=== PATIENT | female | born 1945 | race Caucasian/White ===

== ENCOUNTER 2016-04-16 15:26 | Inpatient (IN) | payer OTHER ==
--- NOTE | ~2016-04-16 | OR ---
Unit #: [id number] #: [id number] Patient: FLOR JOHANSEN [id number] [address] [place], [place] [address] [id number] I MR#: [id number] NAME: FLOR JOHANSEN. ROOM: [facility] Date of Procedure: 04/17/2016 Admission Date: 04/16/2016 Surgeon: Wallace Kendall M.D. : 1945 Attending Physician: Sugey Ragland M.D. Primary Care Physician: Tricia Spicer A.P.R.N. OPERATIVE REPORT PRIMARY CARE PHYSICIAN Tricia Spicer A.P.R.N. PREOPERATIVE DIAGNOSES The patient presents with a history of hematemesis and upper gastrointestinal bleed. PROCEDURE PERFORMED Upper gastrointestinal endoscopy and biopsy. POSTOPERATIVE DIAGNOSES 1. The patient had a large 4 cm submucosal mass in the mid body of the stomach with ulcerated surface. This is most likely the reason for her upper gastrointestinal bleed. 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 Biopsies obtained from the mass, which are likely to be normal because of the submucosal location. In addition, biopsies were also obtained from the antrum for CLOtest. 2. The patient also had grade 1 to 2 distal erosive esophagitis. 3. Rest of the examination up to third part of the duodenum was normal. RECOMMENDATIONS 1. Continue Protonix infusion for another 24 hours. 2. Clear liquid diet and advance as tolerated. 3. Transfuse 1 unit of packed cells today. 4. CBC and CMP in the morning. 5. The patient will need an outpatient endoscopic ultrasound followed by resection. It is preferable that she has a colonoscopy at the same time in the near future. SEDATION USED MAC. DESCRIPTION OF PROCEDURE Following detailed explanation of the potential risks and complications of an upper endoscopy, namely perforation, bleeding, complication related to sedation, the patient was brought to GI lab and laid in the left lateral decubitus position. Lubricated tip of the Olympus video upper endoscope was passed through the bite block into the proximal esophagus under direct vision. Entire esophageal mucosa was examined. The patient was noted to have grade 1 to 2 distal erosive esophagitis. The scope was then advanced into the gastric cavity and the latter was insufflated. Mucosa of the fundus, body, and antrum was examined. A large submucosal mass was seen Unit #: [id number] #: [id number] Patient: FLOR JOHANSEN in the mid body of the stomach with multiple ulcers on the surface. There were at least 3 sizable ulcers with craters in the surface of the mass. No active bleeding was noted. The prepyloric antral area appeared normal. Pylorus was intubated with visualization of the normal duodenal bulb and second and third part of the duodenum. Upon withdrawal and retroflexion, incisura, cardia, and greater curve were examined and biopsy was obtained from the antrum for CLOtest. In addition, biopsy was also obtained of the submucosal mass and sent for histology. The scope was then withdrawn into the distal esophagus. Entire esophageal mucosa was examined all the way up to pharynx. No additional findings noted. The patient tolerated the procedure without any postprocedure complications. Dictated by... Sonia Flores TD: 04/20/2016 05:21 JOB #: [id number] OPERATIVE REPORT X Wallace Kendall MD X PROCEDURE OPERATIVE NOTE
--- NOTE | ~2016-04-16 | OR ---
Unit #: [id number] #: [id number] Patient: FLOR JOHANSEN [id number] [address] [place], [place] [address] [id number] I MR#: [id number] NAME: FLOR JOHANSEN. ROOM: [facility] Date of Procedure: 04/19/2016 Admission Date: 04/16/2016 Surgeon: Wallace Kendall M.D. : 1945 Attending Physician: Sugey Ragland M.D. Primary Care Physician: Tricia Spicer A.P.R.N. OPERATIVE REPORT PRIMARY CARE PHYSICIAN Tricia Spicer A.P.R.N. PREOPERATIVE DIAGNOSES The patient has presented with upper gastrointestinal bleed and a recurrent bleed with drop in hemoglobin and anemia of acute gastrointestinal blood loss. She was found to have a medium-sized mass in the stomach in the area at the junction of the fundus and body with ulceration. The purpose of the examination is to consider endotherapy. PROCEDURES PERFORMED Upper gastrointestinal endoscopy and hemorrhage control. POSTOPERATIVE DIAGNOSES 1. An endoloop was applied at the base of the GIST tumor in the stomach. The purpose is to stop any bleeding from the ulcerated head of the mass. 2. Rest of the examination up to third part of duodenum was normal. RECOMMENDATIONS We will monitor the patient's hemoglobin and hematocrit over the next 24 to 48 hours. She will also require a colonoscopy either as an outpatient later on or as an inpatient in the next couple of days. SEDATION USED MAC. DESCRIPTION OF PROCEDURE The procedure was done in intensive care unit at the patient bedside. Lubricated tip of the Olympus video upper endoscope was passed through the bite block into the proximal esophagus under direct vision. The entire esophageal mucosa was examined and appeared normal. Z-line was nicely demarcated, there being no esophagitis or hiatus hernia. The scope was then advanced into the gastric cavity and latter was insufflated. Mucosa of the fundus, body, and antrum was examined and a GIST large submucosal mass was again seen. A medium-sized mucosa mass was again seen at the junction of body and fundus of stomach. Pylorus was intubated with visualization of the normal duodenal bulb and second and third part of the duodenum. The scope was then withdrawn in the gastric cavity, and attention was focused on the gastric mass. After careful evaluation, it was decided to place an endoloop around the base the mass and not resected because of severe bleeding. The endoloop was then placed at the base of the mass of the tumor and it was applied tightly. One could see a change Unit #: [id number] #: [id number] Patient: FLOR JOHANSEN in the color of the mass to purplish hue, because of strangulation blood supply. The area was washed for about 2 to 3 minutes. The scope was then withdrawn in the distal esophagus. The entire esophageal mucosa was examined all the way up to pharynx. No additional findings were noted. The patient tolerated the procedure without any postprocedure complications. Dictated by... Sonia Flores/nay TD: 04/21/2016 10:55 JOB #: [id number] OPERATIVE REPORT X Wallace Kendall MD X PROCEDURE OPERATIVE NOTE
--- NOTE | ~2016-04-16 | OR ---
Unit #: [id number] #: [id number] Patient: FLOR JOHANSEN [id number] [address] [place], [place] [address] [id number] I MR#: [id number] NAME: FLOR JOHANSEN. ROOM: [facility] Date of Procedure: 04/20/2016 Admission Date: 04/16/2016 Surgeon: Wallace Kendall M.D. : 1945 Attending Physician: Sugey Ragland M.D. Primary Care Physician: Tricia Spicer A.P.R.N. OPERATIVE REPORT ADDITIONAL ATTENDING PHYSICIAN Jessie Stephen M.D. PRIMARY CARE PHYSICIAN Tricia Spicer A.P.R.N. PREOPERATIVE DIAGNOSES Gastrointestinal bleed. The purpose of colonoscopy to look for any potential source of blood loss in the GI tract. It is noteworthy that the patient had an ulcerated gastrointestinal stromal tumor in the stomach, which most likely may be the reason for her upper gastrointestinal bleed. She has also been having some hematochezia. It is also noteworthy that the patient had a colonic perforation 10 years ago at [facility] and at that time had exploratory laparotomy. She also tells me that she had a tumor that was in the colon that was not removed. PROCEDURE PERFORMED Colonoscopy up to cecum with excellent preparation and good visualization. POSTOPERATIVE DIAGNOSES 1. Mild sigmoid and descending colon diverticulosis. 2. 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 However, it is a benign coincidental finding and does not need to be removed. 3. Rest of the examination up to cecum was normal. No blood or blood residue was seen in the entire colonic lumen. The patient did not have any polyps nor any hemorrhoids. RECOMMENDATIONS No further evaluation is indicated. The patient's hemoglobin is stable for 24 hours. We will monitor the hemoglobin tomorrow morning and if is stable, she can be discharged home from gastrointestinal standpoint. She will require outpatient followup and repeat upper GI endoscopy in 8 weeks'. SEDATION USED Procedural sedation. DESCRIPTION OF PROCEDURE Following detailed explanation of the potential risks and complications of a colonoscopy namely perforation, bleeding, and complications related to sedation, the patient was brought to GI lab and laid in the left lateral decubitus position. A digital rectal examination was performed, which was Unit #: [id number] #: [id number] Patient: FLOR JOHANSEN normal. Lubricated tip of the Olympus video colonoscope was inserted through the anus and advanced under direct vision. The scope was advanced and passed up to sigmoid into descending colon. Scant small diverticula were seen in this area. A large lipoma was seen in the mid descending colon prolapsing frequently into the proximal colon. The scope was then advanced past this area into the splenic flexure and then into transverse colon. Mucosa throughout appeared normal. The scope tip was then navigated all the way up to cecum with visualization of the ileocecal valve and the appendiceal orifice. Preparation was excellent with good visualization and photodocumentation was obtained. Successive segments of the colonic mucosa were examined upon withdrawal and appeared unremarkable. There being no polyps, mass lesions, or AVMs. Other than the large lipoma and scant diverticula, no other abnormalities were found. The patient did not have any hemorrhoids at anal verge. The scope was then withdrawn. The patient returned to the recovery area. She tolerated the procedure without any postprocedure complications. Dictated by... Sonia Flores/nay TD: 04/21/2016 01:42 JOB #: [id number] OPERATIVE REPORT X Wallace Kendall MD X PROCEDURE OPERATIVE NOTE
--- NOTE | ~2016-04-16 | EKG ---
PATIENT: FLOR JOHANSEN UNIT #: [id number] Ventricular Rate: 93 BPM Atrial Rate: 93 BPM P-R Interval: 186 ms QRS Duration: 84 ms Q-T Interval: 364 ms QTC Calculation(Bezet): 452 ms P [place]: 47 degrees Calculated R [place]: -19 degrees Calculated T [place]: 22 degrees Diagnosis Line: Normal sinus rhythm with sinus arrhythmia Diagnosis Line: Normal ECG Diagnosis Line: No previous ECGs available Diagnosis Line: Confirmed by DAWNA GORE MD ([id number]) on Diagnosis Line: 04/17/2016 11:53:53 AM INTERPRETING MD: MANI
--- NOTE | ~2016-04-16 | CO ---
Unit #: [id number] #: [id number] Patient: FLOR JOHANSEN [id number] [facility]. [place], [place] [address] [id number] I MR#: [id number] NAME: FLOR JOHANSEN. ROOM: 570 Age: 70 Sex: F Admission Date: 04/16/2016 : 1945 Attending Physician: Sugey Ragland M.D. Primary Care Physician: Tricia Spicer A.P.R.N. Consultation Date: 04/17/2016 CONSULTATION REPORT ADDITIONAL ATTENDING PHYSICIAN Sugey Ragland M.D. PRIMARY CARE PHYSICIAN Tricia Spicer A.P.R.N. REASON FOR CONSULTATION 1. Upper GI bleed. 2. Anemia of acute gastrointestinal blood loss. HISTORY OF PRESENT ILLNESS Ms. Johansen is a very pleasant 70-year-old white female with super obesity. The patient is normally ambulatory, drives car. Lives at home with her grandson and his girlfriend. She has significant comorbid medical problems including COPD, obstructive sleep apnea, CHF, and super obesity. The patient presented with history of vomiting fresh blood followed by a melena. She was admitted through the emergency room yesterday. She also mentions upper abdominal pain primarily felt as cramping. Her admission hemoglobin was 8.5. The patient has since needed packed cell transfusion. PAST MEDICAL HISTORY Significant for history of COPD; hypothyroidism; obstructive sleep apnea, on CPAP machine; congestive heart failure; chronic respiratory failure, on home oxygen. PAST SURGICAL HISTORY Included cholecystectomy, appendectomy, dilatation and curettage. The patient says about 10 years ago, she underwent exploratory laparotomy for perforation of the colon following colonoscopy at [facility]. She also tells me that she has a large mass in the colon, which was not removed. MEDICATIONS At home include the following; home oxygen, CPAP machine, as well as Ventolin, aspirin, Fosamax, lisinopril, Lasix, Synthroid, Zoloft, Lipitor, and Flovent. ALLERGIES She is allergic to codeine and penicillin. SOCIAL HISTORY Does not smoke or drink alcohol. Lives at home with her grandson and his fiancee. Unit #: [id number] #: [id number] Patient: FLOR JOHANSEN FAMILY HISTORY Significant for myocardial infarct and COPD. REVIEW OF SYSTEMS Detailed review of organ systems does not reveal any recent weight loss. No history of fever, chills, or rigors. No history of headache, seizures, chest pain, or syncope. No history of cough, expectoration, or hemoptysis. No history of dysuria, hematuria, or pyuria. No history of focal seizures or extremity weakness. PHYSICAL EXAMINATION GENERAL: She is awake, alert, and oriented, and appears comfortable. VITAL SIGNS: Stable with a temperature of 98.1, pulse is 92 per minute and regular, respiratory rate is 23, blood pressure is 133/50. She weighs 328 pounds, and we do not have any baseline weight. HEENT: She has rygc-om-euqbhzmj pallor. There being no icterus, lymphadenopathy, or peripheral edema. CARDIOVASCULAR: Normal heart sounds. No murmurs on auscultation. LUNGS: Reveal normal breath sounds. Good air entry. ABDOMEN: Soft, obese, and nontender. Liver and spleen are not palpable. Bowel sounds normal. No area of rigidity, rebound, or guarding is felt. Hernial sites were also normal. DIAGNOSTIC STUDIES LABORATORY RESULTS: Reveals INR of 1.0. Her admission hemoglobin was 8.7, and it dropped to 7.2. The patient is currently getting packed cell transfusions. White count was 10.8, and platelet count was 144. Serum chemistry shows elevated BUN and creatinine of 38 and 1.0. Electrolytes are normal. Albumin is 3.2. LFTs are normal. The patient does have low iron and transferrin saturation consistent with iron deficiency anemia in the background. CLINICAL IMPRESSION 1. The patient with major upper gastrointestinal hemorrhage. 2. Anemia of acute gastrointestinal blood loss. 3. Underlying possibly chronic iron-deficiency anemia. 4. Chronic obstructive pulmonary disease; chronic respiratory failure, on home oxygen. 5. Obstructive sleep apnea, on CPAP machine. 6. Super obesity. 7. Previous history of perforation of colon following colonoscopy more than 10 years ago. 8. We will transfuse the patient with packed cells and resuscitate her. An upper endoscopy and possible endotherapy will be done in the next few hours. The patient was explained the pros and cons of procedure, potential risks, and complications including possibility of perforation, bleeding, and complication related to sedation. She clearly is a high-risk candidate from a standpoint view of sedation, because of her significant comorbid medical problems. Thank you very much for asking me to see this pleasant woman. I appreciate the consult. Dictated by... Sonia Flores/nay Unit #: [id number] #: [id number] Patient: FLOR JOHANSEN TD: 04/22/2016 15:32 JOB #: [id number] CC: Jessie Stephen M.D. CONSULTATION REPORT X Wallace Kendall MD X CONSULTATION REPORT
--- NOTE | ~2016-04-16 | TOC ---
Unit #: [id number] #: [id number] Patient: FLOR JOHANSEN [id number] [address] [place], [place] [address] [id number] I MR#: [id number] NAME: FLOR JOHANSEN. ROOM: 570 Age: 70 Sex: F Admission Date: 04/16/2016 : 1945 Attending Physician: Sugey Ragland M.D. Primary Care Physician: Tricia Spicer A.P.R.N. TRANSFER OF CARE SUMMARY PRINCIPAL DIAGNOSES 1. Acute upper gastrointestinal bleed secondary to submucosal gastric mass consistent with gastrointestinal stromal tumor. 2. Acute blood loss anemia status post transfusion of four units of packed red blood cells. 3. Iron deficiency anemia. 4. Chronic hypercapnic, hypoxic respiratory failure, maintained on three liters of oxygen per nasal cannula continuously. 5. Acute kidney injury, prerenal. 6. Moderate protein malnutrition. 7. Morbid obesity. 8. Obstructive sleep apnea. 9. History of large colon mass currently pending evaluation. 10. Tinea of skin folds. 11. Chronic obstructive pulmonary disease. 12. Hypothyroidism. 13. Chronic diastolic congestive heart failure with unknown ejection fraction. CONSULTANTS Dr. Kendall, Gastroenterology. PROCEDURES 1. EGD on April 17, 2016, with a large 4 cm submucosal mass in the mid body of the stomach with ulcerative surface consistent with gastrointestinal stromal tumor. Gastritis and esophagitis also noted. 2. Repeat EGD on April 19, 2016, with an Endoloop tied at the base of the gastrointestinal stromal tumor in the stomach. 3. Colonoscopy on April 20, 2016, which is currently pending. 4. Abdominal x-ray on April 19, 2016, which was normal. Dobbhoff was noted. CLINICAL HISTORY AND HOSPITAL COURSE Ms. Johansen is a very nice 70-year-old female who presented to the emergency department after vomiting blood. This was associated with cramping. She has also had associated diarrhea. In the emergency department, hemoglobin was found to be 7.5. She was started on a Protonix drip, made n.p.o., and subsequently admitted. Dr. Kendall was consulted, and patient underwent EGD on April 17 with findings of a submucosal mass consistent with gastrointestinal stromal tumor. This mass was ulcerated and felt to be the most likely source of patient's bleeding. Initially, she was just supported with transfusion of two units of packed red blood cells, and initially hemoglobin remained Unit #: [id number] #: [id number] Patient: FLOR JOHANSEN stable. However, patient had some recurrent hematemesis and started passing bright red blood per rectum. Hemoglobin dropped from 7.7 down to 6.9. She was transfused another two units and transferred to the ICU given concern for a significant brisk upper GI bleed. However, upon repeat EGD on the , patient underwent Endoloop of this gastrointestinal stromal tumor, but no other source of bleeding was found. Since that time, hemoglobin after transfusion was 8.8 and now continues to increase. We are going to continue to monitor hemoglobin and transfuse if less than 8. Her PPI drip which was initiated is now being transitioned to IV b.i.d. Patient does also have a history of a large colon mass for which she underwent evaluation of her colon mass in 2007 but subsequently developed breathing difficulty, and the procedure had to be aborted. Later that year in 2007, she was found to have a significant lipoma. This has not been followed up since, and given her significant GI bleed and iron deficiency anemia, I am currently awaiting colonoscopy for evaluation. Patient's respiratory failure has remained stable. She did have a mild elevation in creatinine to 1.1 upon presentation, but this resolved with hydration. Creatinine after recurrent bleed yesterday is back up to 1.1 but will be monitored closely. Patient's other chronic conditions remain stable, and further hospital course will be dictated as an addendum. Dictated by... Sugey Ragland M.D. FINA/tammy TD: 04/22/2016 19:31 JOB #: [id number] TRANSFER OF CARE SUMMARY X Sugey Ragland MD TRANSFER OF CARE SUMMARY
--- NOTE | ~2016-04-16 | BMI ---
[facility] Nutrition Therapy DATE: 04/18/16 Patient: FLOR JOHANSEN Physician: WISAM Address: [address] Room/Bed: [address] [place] [address], Zip: [place] [address] Admit Date: 04/16/16 Date of : [birth year] Height: 4 8 Weight: 308 140 HIGH BMI NOTE: ANTHROPOMETRICS: HT: 4'8" ADM WT: 140 KG BMI: 69.2 INTERVENTION: 1. CLEAR LIQUID DIET RECOMMENDATIONS: 1. ONCE MEDICALLY FEASIBLE, ADVANCE THE PT TO A HEART HEALTHY DIET TOLERATED IN ORDER TO PROMOTE GRADUAL WEIGHT LOSS. Respectfully, TRIP MAGANA RD, LD Food and Nutritional Services [facility] cc: client file
--- NOTE | ~2016-04-16 | DS ---
Unit #: [id number] #: [id number] Patient: FLOR JOHANSEN [id number] [address] [address] [id number] I MR#: [id number] NAME: FOLR JOHANSEN. ROOM: [facility] Age: 70 Sex: F Admission Date: 04/16/2016 : 1945 Discharge Date: 04/21/2016 Attending Physician: Sugey Ragland M.D. Primary Care Physician: Tricia Spicer A.P.R.N. DISCHARGE SUMMARY PRIMARY DIAGNOSIS Acute upper gastrointestinal bleed, secondary to submucosal mass most likely representing a gastrointestinal stromal tumor (GIST). SECONDARY DIAGNOSES 1. Grade 1 to 2 distal erosive esophagitis. 2. Incidental finding of a large lipoma in the descending colon with prolapse. 3. Mild colonic diverticulosis. 4. Acute blood loss anemia. 5. Iron-deficiency anemia. 6. Chronic hypoxemic and hypercapnic respiratory failure. 7. Tinea in the skin folds. 8. Morbid obesity. HOSPITAL COURSE The patient was admitted to the hospital. She required transfusion with total of 4 units of packed red blood cells during her hospitalization, 2 units which she received on April 17 and an additional 2 units which she received on April 19. She underwent both EGD and colonoscopy with the findings as detailed above in the diagnoses. Please see the EGD and colonoscopy reports for additional details. She was placed on scheduled Protonix, vitamin B12, Nystatin, and scheduled iron at discharge and she will followup with Dr. Kendall with gastroenterology for repeat EGD on May 25, 2016. Biopsies were taken but are likely to be negative due to the submucosal location of the mass. DISCHARGE DISPOSITION To home. DISCHARGE STATUS Stable. DISCHARGE ACTIVITY Ad karin. DISCHARGE DIET A low-calorie weight loss diet. DISCHARGE FOLLOWUP 1. With her PCP in two to three weeks. 2. Followup with Dr. Kendall with gastroenterology on May 25, 2016. Discharge hemoglobin was 8 to 8.3 on the day of discharge. Unit #: [id number] #: [id number] Patient: FLOR JOHANSEN DISCHARGE MEDICATIONS 1. Ventolin two puffs q.4 hours p.r.n. shortness of breath. 2. Flovent 100 mcg Diskus two puffs b.i.d. 3. Zoloft 100 mg p.o. daily. 4. Nystatin powder apply to affected areas b.i.d. 5. Lasix 40 mg p.o. daily. 6. Lipitor 20 mg p.o. daily. 7. Lisinopril 10 mg p.o. daily. 8. Fosamax 70 mg p.o. once a week. 9. Aspirin 81 mg p.o. daily to restart on April 27. 10. Protonix 40 mg p.o. b.i.d. 11. Synthroid 250 mcg p.o. daily. 12. Vitamin B12 at 1000 mcg p.o. daily. 13. Iron sulfate 325 mg p.o. daily. Dictated by... Charlie Gregorio M.D. JOHN/bob TD: 04/24/2016 11:56 JOB #: [id number] DISCHARGE SUMMARY X Charlie Gregorio MD X DISCHARGE SUMMARY
--- NOTE | ~2016-04-16 | CR7 ---
[facility] A Service of [facility] & [facility] RADIOLOGY TEXT RESULTS PATIENT: FLOR JOHANSEN LOCATION: [place] [address]-21 : [birth year] UNIT #: [id number] AGE: [address]: Sugey Ragland MD SEX: F ORDER DR: [id number] [facility] [address] [place], [place] [address] [id number] MR#: [id number] Acc #: [id number] NAME: FLOR JOHANSEN. : 1945 SEX: F STUDY DATE/TIME: 04/19/2016 19:33 UNIT: [facility] ROOM: [facility] STUDY DESCRIPTION: CR Abdomen Single AP View Attending Physician: Sugey Ragland M.D. Ordering Physician: Sugey Ragland M.D. Primary Care Physician: Tricia Spicer A.P.R.N. MEDICAL IMAGING REPORT This report is preliminary unless electronic signature is present EXAM AP abdomen DATE 04/19/2016 at 19:33. HISTORY Dobbhoff tube placement since Saturday. COMPARISON None. FINDINGS Radiopaque tip of the Dobbhoff tube projects into the region of the second duodenal segment. Dictated by... Mana Camarena M.D. THIS IS AN ELECTRONICALLY VERIFIED REPORT Mana Camarena M.D. at 04/20/2016 9:14 AM [facility]/ara TD: 04/19/2016 23:54 JOB #: [id number] MEDICAL IMAGING REPORT COPY
--- NOTE | ~2016-04-16 | HP ---
Unit #: [id number] #: [id number] Patient: FLOR JOHANSEN [id number] [facility]. [place], [place] [address] [id number] MR#: [id number] NAME: FLOR JOHANSEN ROOM: Age: 70 Sex: F Admission Date: 04/16/2016 : 1945 Attending Physician: Sukhwinder Worley M.D. Primary Care Physician: Tricia Spicer A.P.R.N. HISTORY AND PHYSICAL CHIEF COMPLAINT GI bleed. HISTORY OF PRESENT ILLNESS The patient is a 70-year-old female with past medical history of COPD, chronic respiratory failure, CHF, hypothyroidism, obstructive sleep apnea, who presented to the emergency department for evaluation of the above. The patient states that she started feeling poorly yesterday. She states that she has had abdominal pain in the upper abdomen that she describes as "cramping." It has been intermittent in nature. She has had vomiting and diarrhea in association with the pain. She reports three to four bouts of vomiting blood including blood clots. She had one episode of black lose stool yesterday and one episode of bright red blood per rectum today. In the emergency department she was noted to be heme positive. Hemoglobin is 8.5. She was given 40 mg of Protonix and started on a Protonix drip. She also received 10 mg of Reglan. Hemoglobin is 8.7. She is being admitted to [facility] for evaluation and further treatment. PAST MEDICAL HISTORY 1. Admission to [facility] in 2006 for what sounds like a perforated viscus requiring ICU admission (no records). 2. Hypothyroidism. 3. COPD, followed by Dr. Renee. 4. Chronic respiratory failure on 3 L of oxygen per nasal cannula continuous. 5. Congestive heart failure with unknown ejection fraction, not followed by cardiology. 6. Obstructive sleep apnea, on CPAP. 7. 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 Pathology report showed superficial segments of benign colonic mucosa with mixed inflammation of the lamina propria consistent with mild active colitis. 8. Cholecystectomy. 9. D/C. 10. Appendectomy. SOCIAL HISTORY The patient's grandson lives with her. She is a former smoker. There is no alcohol use. She typically walks without assistance. Unit #: [id number] #: [id number] Patient: FLOR JOHANSEN FAMILY HISTORY Family history is notable for her mother dying of a myocardial infarction in her 80s. Her dad had COPD. ALLERGIES Penicillin and codeine. HOME MEDICATIONS 1. Ventolin two puffs q.4 h. p.r.n. 2. Aspirin 81 mg daily. 3. Fosamax 70 mg weekly. 4. Lisinopril 10 mg daily. 5. Lasix 40 mg daily. 6. Synthroid 250 mcg daily. 7. Zoloft 100 mg daily. 8. Lipitor 20 mg daily 9. Flovent 100 mcg inhaled q.4 h. p.r.n. REVIEW OF SYSTEMS A 10-point review of systems is negative except as indicated in the HPI. The patient states that she has had dyspnea on exertion when walking across the room. She also reports intermittent diaphoresis as well as feeling of lightheadedness today. She denies any chest pain. DIAGNOSTIC STUDIES LABORATORY: Complete blood count notable for white blood cell count of 10.6, hemoglobin and hematocrit 8.7 and 27.6 respectively, MCV of 75.7, RDW of 17.1, INR is 1. Comprehensive metabolic panel is notable for potassium of 5.2, bicarb is 32, BUN and creatinine 40 and 1.1 respectively, albumin is 3.2. PHYSICAL EXAMINATION VITAL SIGNS: Temperature is 97.5. Pulse 99. Respirations 27. Blood pressure 157/112. Oxygen saturation is 97% on 3 L. GENERAL: The patient is a female who is awake and alert. HEENT: The head is atraumatic. Mucous membranes are moist. NECK: Neck is supple. Trachea is midline. CARDIOVASCULAR: Regular rate and rhythm. LUNGS: Demonstrate decreased breath sounds at the bases. Breathing is not labored with conversation. ABDOMEN: Abdomen is obese, soft, nontender, with bowel sounds present in all four quadrants. EXTREMITIES: Nontender, with no pitting edema. NEUROLOGIC: The patient is awake and alert. She follows commands. PSYCHIATRIC: Mood and affect are normal. The patient is cooperative. SKIN: Skin of examined areas is warm and dry. ASSESSMENT The patient is a 70-year-old female with: 1. Acute blood loss anemia. The patient's hemoglobin is 8.7 today with no baseline for comparison. 2. Gastrointestinal bleed. The patient received 40 mg of Protonix and is currently on a Protonix drip. She had a colonoscopy in 2006. She denies ever having EGD. 3. Abdominal pain. 4. Acute kidney injury. The patient's creatinine is 1.1 with no Unit #: [id number] #: [id number] Patient: FLOR JOHANSEN baseline for comparison. She is on lisinopril and Lasix which could be contributing. 5. Hyperkalemia. The patient's potassium is 5.2. Again she is on lisinopril which could be contributing. 6. Chronic obstructive pulmonary disease. Followed by Dr. Renee. 7. Chronic respiratory failure on 3 L of oxygen per nasal cannula continuous. 8. Congestive heart failure with unknown ejection fraction. Not followed by cardiology. 9. Hypothyroidism. 10. Obstructive sleep apnea on CPAP. 11. Former smoker. PLAN 1. Admit to intermediate level for observation. 2. Clear liquid diet for possible endoscopy. 3. Hemoglobin and hematocrit q.6 h. 4. Iron study, B12 and folate. 5. Protonix drip at 8 mg per hour. 6. Consult Dr. Kendall regarding GI bleed. 7. Hold aspirin. 8. EKG and cardiac enzymes. 9. Repeat BMP later this evening to follow up hyperkalemia. 10. Supplemental oxygen 2 to 4 L to maintain saturations greater than 92%. 11. P.r.n. DuoNebs. 12. CPAP at home settings. 13. TSH. 14. Repeat labs in the morning. 15. SCDs. 16. Will hold lisinopril and Lasix which could be contributing to acute kidney injury. 17. Additional workup and consultants based on above. Dictated by Sonia Bautista/sharmaine TD: 04/16/2016 16:34 JOB #: [id number] HISTORY AND PHYSICAL X Jessie Stephen MD HISTORY AND PHYSICAL
[2016-04-16 13:54] LABS: BASOPHIL# 0.1 X10e3 (0-0.3); BASOPHIL% 0.7 % (0-2.5); EOSINOPHIL# 0.1 X10e3 (0-0.7); EOSINOPHIL% 0.9 % (0.0-7.0); HEMATOCRIT 27.6 % (35.0-45.0); HEMOGLOBIN 8.7 gm/dL (12.0-16.0); LYMPHOCYTE# 0.7 X10e3 (1.0-3.5); LYMPHOCYTE% 6.2 % (17.0-45.0); MEAN CELL VOLUME 75.7 FL (83-96); MEAN CORPUSCULAR HEMOGLOBIN 23.9 PG (28-34); MEAN CORPUSCULAR HGB CONC 31.6 g/dL (30-36); MEAN PLATELET VOLUME 9.6 FL (6.5-11.5); MONOCYTE# 0.8 X10e3 (0-1.0); MONOCYTE% 7.6 % (3.0-12.0); NEUTROPHIL% 84.6 % (40-75); PLATELET COUNT 174 X10e3 (140-420); RED BLOOD COUNT 3.64 X10e (3.90-5.30); RED CELL DISTRIBUTION WIDTH 17.1 % (11.0-15.5); WHITE BLOOD COUNT 10.6 X10e3 (4.0-10.5)
[2016-04-16 14:01] LABS: DIFF IND NO
[2016-04-16 14:10] LABS: PARTIAL THROMBOPLASTIN TIME 20.7 SECONDS (23.5-31.3)
[2016-04-16 14:27] LABS: ALBUMIN SERUM 3.2 g/dL (3.5-5.0); BILIRUBIN, DIRECT 0.1 mg/dL (0.0-0.2); BILIRUBIN,INDIRECT 0.2 mg/dL (0.0-0.9); BILIRUBIN,TOTAL 0.3 mg/dL (0.2-2.0); BUN/CREATININE RATIO 36.36; CALCIUM SERUM 8.8 mg/dL (8.4-10.2); CREATININE SERUM 1.1 mg/dL (0.6-1.4); GLOM FILT RATE Estimated 52.5 mL/min (>60); POTASSIUM 5.2 mmol/L (3.5-5.1)
[~2016-04-16 15:26] MED LIST: ALBUTEROL17 GM INH; ASPIRIN81 M1; CALTRATE PLUS T1 TAB PO; FLOVENT DISKU100 MCG INH; FOSAMAX PO; FOSAMAX70 MG/75 M PO; LASIX; LASIX PO; LISINOPRIL PO; PERCOCET 5-3251 TAB PO; REMERON PO; SYNTHROID PO; ZOLOFT PO
[2016-04-16] MEDS ORDERED: ALBUTEROL17 GM INH (15:34)
[2016-04-16] MEDS ORDERED: ASPIRIN81 MG PO (15:35)
[2016-04-16] MEDS ORDERED: SYNTHROID PO (15:36)
[2016-04-16] MEDS ORDERED: FOSAMAX70 MG PO (15:36)
[2016-04-16] MEDS ORDERED: LISINOPRIL10 MG PO (15:36)
[2016-04-16] MEDS ORDERED: LASIX PO (15:36)
[2016-04-16] MEDS ORDERED: LEVOTHYROXINE50 MCG PO (15:37)
[2016-04-16] MEDS ORDERED: LIPITOR20 MG PO (15:37)
[2016-04-16] MEDS ORDERED: ZOLOFT100 MG PO (15:37)
[2016-04-16] MEDS ORDERED: FLOVENT DISKU100 MCG INH (15:38)
[2016-04-16 17:28] LABS: CK TOTAL 26 IU/L (26-140); IRON SERUM 22 ug/dL (28-170); TOTAL IRON BINDING CAPACITY 317 ug/dL (269-535); TRANSFERRIN 227 mg/dL (192-382); TRANSFERRIN SATURATION 7 % (20-50)
[2016-04-16 18:29] LABS: FOLATE (FOLIC ACID) 8.6 ng/mL (>5.8)
[2016-04-16 19:37] LABS: HEMATOCRIT 27.2 % (35.0-45.0); HEMOGLOBIN 8.6 gm/dL (12.0-16.0)
[2016-04-16 19:52] LABS: CALCIUM SERUM 8.3 mg/dL (8.4-10.2); GLOM FILT RATE Estimated 58.6 mL/min (>60); POTASSIUM 4.7 mmol/L (3.5-5.1)
[2016-04-16 22:30] LABS: CK TOTAL 27 IU/L (26-140)
[2016-04-17 00:48] LABS: HEMATOCRIT 23.8 % (35.0-45.0); HEMOGLOBIN 7.4 gm/dL (12.0-16.0)
[2016-04-17 06:06] LABS: CK TOTAL 29 IU/L (26-140)
[2016-04-17 07:35] LABS: HEMOGLOBIN 7.2 gm/dL (12.0-16.0); MEAN CELL VOLUME 75.4 FL (83-96); MEAN CORPUSCULAR HEMOGLOBIN 23.8 PG (28-34); MEAN CORPUSCULAR HGB CONC 31.5 g/dL (30-36); MEAN PLATELET VOLUME 9.5 FL (6.5-11.5); RED BLOOD COUNT 3.05 X10e (3.90-5.30); RED CELL DISTRIBUTION WIDTH 17.1 % (11.0-15.5); WHITE BLOOD COUNT 7.7 X10e3 (4.0-10.5)
[2016-04-17 08:28] LABS: ALBUMIN SERUM 2.9 g/dL (3.5-5.0); ALKALINE PHOSPHATASE 44 U/L (32-92); ALT (SGPT) 14 U/L (10-40); AST (SGOT) 16 U/L (10-42); BILIRUBIN,TOTAL 0.4 mg/dL (0.2-2.0); BLOOD UREA NITROGEN 29 mg/dL (9-23); BUN/CREATININE RATIO 32.22; CALCIUM SERUM 8.2 mg/dL (8.4-10.2); CARBON DIOXIDE 28 mmol/L (22-31); CHLORIDE 106 mmol/L (100-111); CREATININE SERUM 0.9 mg/dL (0.6-1.4); GLOM FILT RATE Estimated ABOVE60 mL/min (>60); GLUCOSE FASTING 113 mg/dL (70-110); POTASSIUM 4.3 mmol/L (3.5-5.1); SODIUM 139 mmol/L (135-145)
[2016-04-17 14:35] LABS: HEMATOCRIT 23.9 % (35.0-45.0); HEMOGLOBIN 7.7 gm/dL (12.0-16.0)
[2016-04-18 04:13] LABS: HEMATOCRIT 24.4 % (35.0-45.0); HEMOGLOBIN 7.9 gm/dL (12.0-16.0); MEAN CELL VOLUME 76.5 FL (83-96); MEAN CORPUSCULAR HEMOGLOBIN 24.7 PG (28-34); MEAN CORPUSCULAR HGB CONC 32.4 g/dL (30-36); MEAN PLATELET VOLUME 9.2 FL (6.5-11.5); RED BLOOD COUNT 3.19 X10e (3.90-5.30); RED CELL DISTRIBUTION WIDTH 16.6 % (11.0-15.5); WHITE BLOOD COUNT 8.9 X10e3 (4.0-10.5)
[2016-04-18 04:22] LABS: ALBUMIN SERUM 2.9 g/dL (3.5-5.0); ALKALINE PHOSPHATASE 41 U/L (32-92); ALT (SGPT) 11 U/L (10-40); AST (SGOT) 13 U/L (10-42); BILIRUBIN,TOTAL 0.9 mg/dL (0.2-2.0); BLOOD UREA NITROGEN 19 mg/dL (9-23); BUN/CREATININE RATIO 21.11; CALCIUM SERUM 8.3 mg/dL (8.4-10.2); CARBON DIOXIDE 30 mmol/L (22-31); CHLORIDE 104 mmol/L (100-111); CREATININE SERUM 0.9 mg/dL (0.6-1.4); GLOM FILT RATE Estimated ABOVE60 mL/min (>60); GLUCOSE FASTING 99 mg/dL (70-110); POTASSIUM 4.1 mmol/L (3.5-5.1); PROTEIN TOTAL SERUM 5.3 g/dL (6.0-8.3); SODIUM 139 mmol/L (135-145)
[2016-04-18 13:50] LABS: HEMATOCRIT 26.4 % (35.0-45.0); HEMOGLOBIN 8.6 gm/dL (12.0-16.0)
[2016-04-19 02:03] LABS: HEMATOCRIT 21.4 % (35.0-45.0); MEAN CORPUSCULAR HEMOGLOBIN 24.8 PG (28-34); MEAN CORPUSCULAR HGB CONC 32.3 g/dL (30-36); MEAN PLATELET VOLUME 9.2 FL (6.5-11.5); RED BLOOD COUNT 2.78 X10e (3.90-5.30); RED CELL DISTRIBUTION WIDTH 16.9 % (11.0-15.5); WHITE BLOOD COUNT 10.8 X10e3 (4.0-10.5)
[2016-04-19 02:04] LABS: HEMOGLOBIN 6.9 gm/dL (12.0-16.0)
[2016-04-19 02:44] LABS: CALCIUM SERUM 7.9 mg/dL (8.4-10.2); GLOM FILT RATE Estimated 58.6 mL/min (>60); POTASSIUM 4.8 mmol/L (3.5-5.1)
[2016-04-19 09:05] LABS: HEMOGLOBIN 8.8 gm/dL (12.0-16.0); MEAN CELL VOLUME 78.6 FL (83-96); MEAN CORPUSCULAR HEMOGLOBIN 25.7 PG (28-34); MEAN CORPUSCULAR HGB CONC 32.7 g/dL (30-36); MEAN PLATELET VOLUME 8.9 FL (6.5-11.5); RED BLOOD COUNT 3.43 X10e (3.90-5.30); RED CELL DISTRIBUTION WIDTH 16.8 % (11.0-15.5); WHITE BLOOD COUNT 10.1 X10e3 (4.0-10.5)
[2016-04-19 09:18] LABS: PARTIAL THROMBOPLASTIN TIME 25.6 SECONDS (23.5-31.3); PROTHROMBIN TIME (PATIENT) 10.7 SECONDS (9.6-11.5)
[2016-04-19 15:39] LABS: HEMATOCRIT 26.4 % (35.0-45.0); HEMOGLOBIN 8.7 gm/dL (12.0-16.0); MEAN CELL VOLUME 79.1 FL (83-96); MEAN CORPUSCULAR HEMOGLOBIN 26.2 PG (28-34); MEAN CORPUSCULAR HGB CONC 33.1 g/dL (30-36); MEAN PLATELET VOLUME 9.5 FL (6.5-11.5); RED BLOOD COUNT 3.33 X10e (3.90-5.30); RED CELL DISTRIBUTION WIDTH 16.4 % (11.0-15.5); WHITE BLOOD COUNT 10.7 X10e3 (4.0-10.5)
[2016-04-19 16:00] LABS: HEMATOCRIT 26.2 % (35.0-45.0); HEMOGLOBIN 8.7 gm/dL (12.0-16.0)
[2016-04-19 20:58] LABS: HEMATOCRIT 26.1 % (35.0-45.0); HEMOGLOBIN 8.5 gm/dL (12.0-16.0)
[2016-04-20 03:25] LABS: HEMATOCRIT 25.5 % (35.0-45.0); HEMOGLOBIN 8.4 gm/dL (12.0-16.0); MEAN CELL VOLUME 79.6 FL (83-96); MEAN CORPUSCULAR HEMOGLOBIN 26.2 PG (28-34); MEAN CORPUSCULAR HGB CONC 32.9 g/dL (30-36); MEAN PLATELET VOLUME 9.1 FL (6.5-11.5); RED BLOOD COUNT 3.21 X10e (3.90-5.30); RED CELL DISTRIBUTION WIDTH 16.8 % (11.0-15.5); WHITE BLOOD COUNT 9.5 X10e3 (4.0-10.5)
[2016-04-20 03:49] LABS: BUN/CREATININE RATIO 11.81; CREATININE SERUM 1.1 mg/dL (0.6-1.4); GLOM FILT RATE Estimated 52.5 mL/min (>60); POTASSIUM 4.1 mmol/L (3.5-5.1)
[2016-04-20 10:09] LABS: HEMATOCRIT 28.3 % (35.0-45.0); HEMOGLOBIN 9.1 gm/dL (12.0-16.0)
[2016-04-20 16:19] LABS: HEMATOCRIT 28.1 % (35.0-45.0); HEMOGLOBIN 9.1 gm/dL (12.0-16.0)
[2016-04-21 05:17] LABS: HEMATOCRIT 24.5 % (35.0-45.0); MEAN CORPUSCULAR HEMOGLOBIN 26.4 PG (28-34); MEAN CORPUSCULAR HGB CONC 32.6 g/dL (30-36); MEAN PLATELET VOLUME 9.2 FL (6.5-11.5); RED BLOOD COUNT 3.03 X10e (3.90-5.30); RED CELL DISTRIBUTION WIDTH 16.7 % (11.0-15.5)
[2016-04-21 07:02] LABS: BLOOD UREA NITROGEN 9 mg/dL (9-23); BUN/CREATININE RATIO 11.25; CALCIUM SERUM 8.2 mg/dL (8.4-10.2); CARBON DIOXIDE 31 mmol/L (22-31); CHLORIDE 105 mmol/L (100-111); CREATININE SERUM 0.8 mg/dL (0.6-1.4); GLOM FILT RATE Estimated ABOVE60 mL/min (>60); GLUCOSE FASTING 103 mg/dL (70-110); POTASSIUM 3.8 mmol/L (3.5-5.1); SODIUM 141 mmol/L (135-145)
[2016-04-21 13:07] LABS: HEMATOCRIT 25.2 % (35.0-45.0); HEMOGLOBIN 8.3 gm/dL (12.0-16.0); MEAN CELL VOLUME 80.7 FL (83-96); MEAN CORPUSCULAR HEMOGLOBIN 26.5 PG (28-34); MEAN CORPUSCULAR HGB CONC 32.8 g/dL (30-36); MEAN PLATELET VOLUME 9.3 FL (6.5-11.5); RED BLOOD COUNT 3.12 X10e (3.90-5.30); RED CELL DISTRIBUTION WIDTH 17.6 % (11.0-15.5); WHITE BLOOD COUNT 9.3 X10e3 (4.0-10.5)
[2016-04-21] MEDS ORDERED: MYCOSTATIN POWD15 GM EXT (13:53)
[2016-04-21] MEDS ORDERED: B-121000 MC1 PO (13:54)
[2016-04-21] MEDS ORDERED: IRON325 ( 651 PO (13:55)
[2016-04-21] MEDS ORDERED: PROTONIX PO (14:03)
[2016-06-11] MEDS ORDERED: LISINOPRIL10 MG PO (07:36)
[2016-06-11] MEDS ORDERED: ZOLOFT100 MG PO (07:37)
[2016-06-11] MEDS ORDERED: OXYGEN INH (07:37)
[2016-06-11] MEDS ORDERED: FOSAMAX70 MG PO (07:37)
== END 2016-04-21 18:27 | disposition home or self-care (01) | DRG 543 ==
LOC: CED 15:26 → CEDOF 15:55 → C3A PCU 18:14 → CICCU3 04-19 16:30 → C5C 04-20 12:06
PROVIDERS: Emergency Medicine; Family Medicine; Internal Medicine; Internal Medicine Gastroenterology
PROC: 02HV33Z Insertion of Infusion Device into Superior Vena Cava, Percutaneous Approach (ICD-10-PCS; 2016-04-16)
PROC: 4A02X4A Measurement of Cardiac Electrical Activity, Guidance, External Approach (ICD-10-PCS; 2016-04-16)
PROC: B548ZZA Ultrasonography of Superior Vena Cava, Guidance (ICD-10-PCS; 2016-04-16)
PROC: 30233N1 Transfusion of Nonautologous Red Blood Cells into Peripheral Vein, Percutaneous Approach (ICD-10-PCS; principal; 2016-04-17 14:56)
PROC: 0DB78ZX Excision of Stomach, Pylorus, Via Natural or Artificial Opening Endoscopic, Diagnostic (ICD-10-PCS; 2016-04-17 14:56)
PROC: 0W3P8ZZ Control Bleeding in Gastrointestinal Tract, Via Natural or Artificial Opening Endoscopic (ICD-10-PCS; 2016-04-19)
PROC: 0DJD8ZZ Inspection of Lower Intestinal Tract, Via Natural or Artificial Opening Endoscopic (ICD-10-PCS; 2016-04-20)
DX: C49.A2 Gastrointestinal stromal tumor of stomach (principal); K92.2 Gastrointestinal hemorrhage, unspecified; N17.9 Acute kidney failure, unspecified; J96.11 Chronic respiratory failure with hypoxia; E44.0 Moderate protein-calorie malnutrition; J96.12 Chronic respiratory failure with hypercapnia; I50.32 Chronic diastolic (congestive) heart failure; Z68.45 Body mass index [BMI] 70 or greater, adult; K22.10 Ulcer of esophagus without bleeding; D62 Acute posthemorrhagic anemia; I11.0 Hypertensive heart disease with heart failure; D17.79 Benign lipomatous neoplasm of other sites; D50.9 Iron deficiency anemia, unspecified; B35.8 Other dermatophytoses; E66.01 Morbid (severe) obesity due to excess calories; E03.9 Hypothyroidism, unspecified; K57.90 Diverticulosis of intestine, part unspecified, without perforation or abscess without bleeding; G47.33 Obstructive sleep apnea (adult) (pediatric); Z79.82 Long term (current) use of aspirin; Z88.5 Allergy status to narcotic agent; Z88.0 Allergy status to penicillin; E87.5 Hyperkalemia; K25.9 Gastric ulcer, unspecified as acute or chronic, without hemorrhage or perforation
CPT/HCPCS: 36415; 74000; 80048; 80053; 80076; 82550; 82607; 82746; 82947; 83540; 83550; 84443; 84466; 84484; 85014; 85018; 85025; 85027; 85610; 85730; 86850; 86900; 86901; 86923; 87077; 93005; 94760; 96361; 96374; 96375; 97162; 97166; 99285; C9113; G8978-GP; G8979-GP; G8980-GP; G8987-GO; G8988-GO; G8989-GO; J2250; J2405; J2765; J2916; J3010; P9016

== ENCOUNTER → 2016-06-11 | Day surgery (SDC) | payer OTHER ==
[~2016-06-11] MED LIST changes: +ASPIRIN81 MG PO; +B-121000 MC1 PO; +FOSAMAX70 MG PO; +IRON325 ( 651 PO; +LEVOTHYROXINE50 MCG PO; +LIPITOR20 MG PO; +LISINOPRIL10 MG PO; +MYCOSTATIN POWD15 GM EXT; +OXYGEN INH; +PROTONIX PO; +ZOLOFT100 MG PO
--- NOTE | ~2016-06-11 | OR ---
Unit #: [id number] #: [id number] Patient: FLOR JOHANSEN [id number] [address] [place], [place] [address] [id number] MR#: [id number] NAME: FLOR JOHANSEN ROOM: Date of Procedure: 06/11/2016 Admission Date: 06/11/2016 Surgeon: Wallace Kendall M.D. : 1945 Attending Physician: Wallace Kendall M.D. Primary Care Physician: Tricia Spicer A.P.R.N. OPERATIVE REPORT PRIMARY CARE PHYSICIAN Tricia Spicer A.P.R.N. PREOPERATIVE DIAGNOSES The patient has presented with multiple episodes of upper gastrointestinal bleed as a result of an ulcerated mass in the stomach. This was treated by Endoloop application. 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 Since then, the patient has done well. She therefore came for a repeat endoscopy to see if the mass is necrosed and fallen out or not. PROCEDURE PERFORMED Upper gastrointestinal endoscopy. POSTOPERATIVE DIAGNOSES The mass is intact and exactly like was before; however, the area of ulceration is reduced considerably. There is also lot of normal mucosa in the Endoclip. Otherwise, examination was normal up to third part of duodenum. RECOMMENDATIONS We will consider surgical resection even if it is done endoscopically and we will ask Dr. Tyler Noel to see this patient in this regard. SEDATION USED MAC. DESCRIPTION OF PROCEDURE Following detailed explanation of the potential risks and complications of an upper endoscopy namely perforation, bleeding, and complication related to sedation, the patient was brought to GI lab and laid in the left lateral decubitus position. Lubricated tip of the Olympus video upper endoscope was passed through the bite block into the proximal esophagus under direct vision. The entire esophageal mucosa was examined and appeared normal. Z-line was nicely demarcated, there being no esophagitis or hiatus hernia. The scope was then advanced into the gastric cavity and the latter was insufflated. Mucosa of the fundus, body, and antrum was examined. The patient was noted to have Endoloop in place around a gastric stromal tumor. There does seem be some element of normal mucosa entrapped in the loop. The prepyloric antral area had mild erythema. Pylorus was intubated with visualization of the normal duodenal bulb and second and third part of the duodenum. Upon withdrawal and retroflexion, Unit #: [id number] #: [id number] Patient: FLOR JOHANSEN the mass was again seen. This had an ulceration at its tip; however, the overall appearances were much better and overall appearance is that of a benign stromal tumor. The scope was withdrawn in the distal esophagus. Entire esophageal mucosa was examined all the way up to pharynx. No additional findings were noted. The patient tolerated the procedure without any postprocedure complications. Dictated by... Sonia Flores/nay TD: 06/11/2016 10:20 JOB #: [id number] Tyler Noel M.D. OPERATIVE REPORT Page 1 of 1 X Wallace Kendall MD X PROCEDURE OPERATIVE NOTE
[2016-06-11 09:24] LABS: BASOPHIL% 0.7 % (0-2.5); DIFF IND NO; EOSINOPHIL# 0.2 X10e3 (0-0.7); EOSINOPHIL% 3.3 % (0.0-7.0); HEMATOCRIT 30.8 % (35.0-45.0); HEMOGLOBIN 9.5 gm/dL (12.0-16.0); LYMPHOCYTE# 0.9 X10e3 (1.0-3.5); LYMPHOCYTE% 15.2 % (17.0-45.0); MEAN CELL VOLUME 77.3 FL (83-96); MEAN CORPUSCULAR HEMOGLOBIN 23.8 PG (28-34); MEAN CORPUSCULAR HGB CONC 30.8 g/dL (30-36); MEAN PLATELET VOLUME 8.9 FL (6.5-11.5); MONOCYTE# 0.8 X10e3 (0-1.0); MONOCYTE% 12.9 % (3.0-12.0); NEUTROPHIL# 4.2 X10e3 (1.5-7.1); NEUTROPHIL% 67.9 % (40-75); PLATELET COUNT 160 X10e3 (140-420); RED BLOOD COUNT 3.98 X10e (3.90-5.30); RED CELL DISTRIBUTION WIDTH 17.2 % (11.0-15.5); WHITE BLOOD COUNT 6.2 X10e3 (4.0-10.5)
== END | disposition home or self-care (01) ==
LOC: COPS 05:42
PROVIDERS: Internal Medicine Gastroenterology
DX: K25.9 Gastric ulcer, unspecified as acute or chronic, without hemorrhage or perforation (principal); K92.2 Gastrointestinal hemorrhage, unspecified; E03.9 Hypothyroidism, unspecified; J44.9 Chronic obstructive pulmonary disease, unspecified; K21.9 Gastro-esophageal reflux disease without esophagitis; I10 Essential (primary) hypertension; Z90.49 Acquired absence of other specified parts of digestive tract; Z88.0 Allergy status to penicillin; Z88.1 Allergy status to other antibiotic agents; Z88.6 Allergy status to analgesic agent; Z79.82 Long term (current) use of aspirin; Z79.899 Other long term (current) drug therapy
CPT/HCPCS: 85025